=== PATIENT | female | born 1995 | race Hispanic/Latino ===

== ENCOUNTER 2017-05-28 09:59 | Outpatient (CLI) | payer OTHER ==
[2017-05-28 17:32] LABS: Progesterone 0.2 ng/mL
== END 2017-05-28 10:00 | disposition home or self-care (01) ==
LOC: MADLABBHPM 09:59
PROVIDERS: ATTEND Family Medicine
DX: N92.6 Irregular menstruation, unspecified (principal)
CPT/HCPCS: 36415; 82670; 83001; 84144; 84146; 86762

== ENCOUNTER 2018-05-16 00:42 | Emergency (ER) | payer MEDICAID, SELFPAY ==
[2018-05-16 01:27] LABS: Bilirubin Negative (Negative); Blood, Urine Trace (Negative); Clarity Slightly Cloudy (Clear); Glucose, Urine (Dipstick) Negative (Negative); Leukocyte Negative (Negative); Nitrite Negative (Negative); Protein, Urine (Dipstick) Negative (Neg-Trace)
[2018-05-16 01:35] LABS: Bacteria/HPF 2+ HPF (None Seen); Yeast-All Forms Rare HPF (None Seen)
[2018-05-16] MEDS ORDERED: Acetaminophen/Codeine 30-300mg Tablet ONE (02:43)
[2018-05-16] MEDS ORDERED: Nitrofurantoin Monohyd/M-Cryst 100 MG CAP ONE (02:44)
== END 2018-05-16 02:50 | disposition home or self-care (01) ==
LOC: MADERS 00:42
DX: O23.41 Unspecified infection of urinary tract in pregnancy, first trimester (principal); Z3A.01 Less than 8 weeks gestation of pregnancy
CPT/HCPCS: 36415; 81003; 81015; 84702; 86900; 86901; 87086; 99283